=== PATIENT | female | born 1995 | race Caucasian/White ===

== ENCOUNTER 2017-11-30 23:25 | Emergency (ER) | payer OTHER, BC ==
[~2017-11-30] VITALS: Ht 157.5 cm; Wt 49.9 kg
[2017-11-30 23:29] VITALS: TEMP 36.6; Ht 157.5 cm; Wt 49.9 kg
[2017-11-30] MEDS ORDERED: AMPICILLIN/SULBACTAM SOD INJ 3,000 MG in SODIUM CHLORIDE 0.9% 100ML 100 ML IV STA (23:42)
--- NOTE | 2017-11-30 23:50 | EMERGENCY ROOM VISIT NOTE ---
History First contact with patient: 23:34 Chief Complaint: BITE Stated Complaint: INFLAMATION FROM CAT BITE ON FINGER, UP TO ARM History of Present Illness The patient is a 22 year old female who presents to the Emergency Room with complaints of cat bite to the right hand at 9 AM. States it is her cat, cat is only kept inside, and has been fully immunized which she brought a record. Patient states has redness and swelling around the puncture site, but also feels pain up into the hand and up into the forearm. Patient feels that her forearm is mildly swollen, has not noticed any redness or rash. Patient denies fevers chills, nausea vomiting, abdominal pain, or any other new or concerning symptoms. Review of Systems See HPI for pertinent positives & negatives. A total of 6 systems reviewed and were otherwise negative. Past Medical/Surgical History none Social History Smoking Status: Never Smoker Current/Historical Medications Scheduled Amoxicillin & Pot Clavulanate (Augmentin 875-125 mg), 875 MG PO BID Physical Exam Vital Signs Date Time Temp Pulse Resp B/P (MAP) Pulse Ox O2 Delivery O2 Flow Rate FiO2 12/01/17 00:53 80 16 113/73 100 11/30/17 23:29 36.6 81 18 126/85 100 Room Air Physical Exam GENERAL: alert, well appearing, well nourished, no distress, non-toxic EYE EXAM: normal conjunctiva, PERRL and EOM's grossly intact OROPHARYNX: no exudate, no erythema, lips, buccal mucosa, and tongue normal and mucous membranes are moist LUNGS: Clear to auscultation. Normal chest wall mechanics HEART: no murmurs, S1 normal and S2 normal ABDOMEN: abdomen soft, non-tender, normo-active bowel sounds, no masses, no rebound or guarding. BACK: Back is symmetrical on inspection and there is no deformity, no midline tenderness, no CVA tenderness. SKIN: no rashes and no bruising UPPER EXTREMITIES: upper extremities are grossly normal. Small area of increased redness and swollen at the PIP of the second digit on the right hand on the dorsal aspect. Patient with decreased range of motion at the PIP secondary to pain and swelling. Erythema contained to area immediately around the puncture site. No drainage or bleeding. Area not warm to touch. No evidence of ascending lymphangitis or additional erythema more proximally. No edema noted to the right hand or forearm area did right forearm nontender to palpation. Patient with otherwise full range of motion over the rest of the entire right upper extremity. Patient is right-hand dominant. No evidence of wound/edema/erythema to the palmar aspect of the hand and digits. Left upper extremity including hand normal and without injury. Both hands with normal capillary refill, and normal radial pulse bilaterally. LOWER EXTREMITIES: No pitting edema. Normal range of motion. Normal pulses. NEURO EXAM: Normal sensorium, cranial nerves II-XII grossly intact, normal speech, no gross weakness of arms, no gross weakness of legs. Gross sensation intact. Medical Decision & Procedures Medications Administered Medications (Trade) Dose Ordered Sig/Renetta Route Start Time Stop Time Status Last Admin Dose Admin Ampicillin Sodium/ Sulbactam Sodium 3000 mg/Sodium Chloride 108 ml @ 200 mls/hr NOW STAT IV 11/30/17 23:42 12/01/17 00:14 DC 12/01/17 00:04 200 MLS/HR ED Course 0011: Pt reexamined. All questions answered at bedside. Medical Decision Differential diagnosis: Etiologies such as animal bite, septic arthritis, cellulitis, abscess, MRSA infection, DVT, necrotizing fasciitis, dermatitis, drug eruption, as well as others were entertained. Patient well-appearing here, started on antibiotics. No concern for need for rabies vaccinations, patient states that her tetanus shot up-to-date. No evidence of ascending lymphangitis at this time. Medication Reconcilliation Current Medication List: was personally reviewed by me Blood Pressure Screening Patient's blood pressure: Normal blood pressure Impression Primary Impression: Cat bite Departure Information Dispostion Home / Self-Care Condition GOOD Prescriptions Amoxicillin & Pot Clavulanate (Augmentin 875-125 mg) 1 Tab Tab 875 MG PO BID for 7 Days, TAB Prov: Talia Adams, DO 12/01/17 Referrals No Doctor, Assigned (PCP) Patient Instructions My [facility] Additional Instructions Please: Follow up with her family doctor in 24-48 hours to recheck the wound. Please take the medics as prescribed. Please drink plenty of water. While you' re taking antibiotics please consider also taking probiotics or eating yogurt daily. If you develop any increased pain or swelling, increased redness, discharge or drainage from the wound, notice red or pink areas streaking up into the hand or arm, have increased pain in the arm, develop fevers or chills, nausea or vomiting, or you've any other new concerns, please return the emergency room. Problem Qualifiers Primary Impression: Cat bite Encounter type: initial encounter Qualified Codes: W55.01XA - Bitten by cat , initial encounter
[2017-12-01] MEDS ORDERED: AMOX875T PO (00:09)
[2017-12-01 00:53] VITALS: BP 113/73; PULSE 80; O2SAT 100
== END 2017-12-01 00:55 | disposition home or self-care (01) ==
LOC: C.EDB 23:28 → C.EDA 12-01 00:55
DX: S61.451A Open bite of right hand, initial encounter (principal); W55.01XA Bitten by cat, initial encounter